=== PATIENT | male | born 1975 | race Caucasian/White ===

== ENCOUNTER 2017-02-21 18:26 | Emergency (ER) | payer OTHER, BC ==
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
[2017-02-21] MEDS ORDERED: Ketorolac 60 MG/2 ML SDV IM ONE (19:47)
[2017-02-21 20:21] VITALS: BP 131/81
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
== END 2017-02-21 20:11 | disposition home or self-care (01) ==
LOC: MW.ED 18:26
DX: S50.01XA Contusion of right elbow, initial encounter (principal); E66.9 Obesity, unspecified; Z98.890 Other specified postprocedural states; Z68.42 Body mass index [BMI] 45.0-49.9, adult; V89.2XXA Person injured in unspecified motor-vehicle accident, traffic, initial encounter
CPT/HCPCS: 73080; 96372; 99283; J1885; J2360

== ENCOUNTER 2019-02-11 09:13 | Emergency (ER) | payer BC ==
[2019-02-11 10:18] LABS: CHLORIDE,CL 108 mmol/L (98-107); SODIUM,NA 142 mmol/L (136-148)
[2019-02-11 10:30] VITALS: BP 144/86
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
--- NOTE | 2019-02-11 10:51 | CT ---
EXAMINATION: Non contrast CT head. Coronal and sagittal reformats. HISTORY: Pain FINDINGS: No evidence of intra or extra axial hemorrhage, mass, midline shift, hydrocephalus or edema. No hypoattenuation changes in the major vascular territories to suggest acute infarct. No abnormal intracranial calcifications are detected. No evidence of substantial vascular calcifications. Paranasal sinuses and mastoid air cells are well aerated without substantial findings. Pituitary fossa appears unremarkable. Orbits and globes are symmetric. Calvarium is intact. No evidence of skull fracture. IMPRESSION: No acute intracranial findings.
== END 2019-02-11 11:19 | disposition home or self-care (01) ==
LOC: MW.ED 09:13
DX: Z13.9 Encounter for screening, unspecified (principal); E78.00 Pure hypercholesterolemia, unspecified; Z79.899 Other long term (current) drug therapy
CPT/HCPCS: 36415; 70450; 70450-26; 80053; 81003; 82962; 84484; 85025; 85610; 99283; 99284-25

== ENCOUNTER 2019-11-15 13:01 | Observation (INO) | payer BC ==
--- NOTE | 2019-11-15 13:17 | EDM.PDOC ---
ED HPI GENERAL MEDICAL PROBLEM - General Chief Complaint: Chest Pain Stated Complaint: CHEST PAIN Time Seen by Provider: 11/15/19 13:13 Source of Information: Reports: Patient History Limitations: Reports: No Limitations - History of Present Illness INITIAL COMMENTS - FREE TEXT/NARRATIVE: This 44-year-old gentleman presents to the emergency room with a chief complaint of chest pain radiating down his arms for 5 to 10 minutes. Patient states the pain was 5 out of 10 and he was sweating. Since then subsided down to 0. Patient is here in the emergency room without any active chest pain. Onset: Today Duration: Minutes:, Resolved Prior to Arrival Location: Reports: Chest Quality: Reports: Dull Severity: Moderate Improves with: Reports: Rest Associated Symptoms: Reports: Chest Pain, Diaphoresis, Shortness of Breath chest Pain Score (Numeric/FACES): 5 - Related Data Allergies Allergy/AdvReac Type Severity Reaction Status Date / Time No Known Allergies Allergy Verified 11/15/19 13:08 Home Meds: Home Meds . [No Known Home Meds] 11/15/19 [History] Past Medical History - Past Health History Medical/Surgical History: Denies Medical/Surgical History HEENT History: Reports: None Cardiovascular History: Reports: None, High Cholesterol Respiratory History: Reports: Sleep Apnea Gastrointestinal History: Reports: None Genitourinary History: Reports: None Musculoskeletal History: Reports: None Neurological History: Reports: None Psychiatric History: Reports: None Endocrine/Metabolic History: Reports: Obesity/BMI 30+ Hematologic History: Reports: None Immunologic History: Reports: None Oncologic (Cancer) History: Reports: None Dermatologic History: Reports: Psoriasis - Infectious Disease History Infectious Disease History: Reports: None - Past Surgical History Head Surgeries/Procedures: Reports: None HEENT Surgical History: Reports: Adenoidectomy, Tonsillectomy Other HEENT Surgeries/Procedures: T&A and uvulectomy Social & Family History - Family History Family Medical History: Noncontributory - Caffeine Use Caffeine Use: Reports: Coffee ED ROS GENERAL - Review of Systems Review Of Systems: See Below Constitutional: Reports: No Symptoms HEENT: Reports: No Symptoms Respiratory: Reports: Shortness of Breath Cardiovascular: Reports: Chest Pain Endocrine: Reports: No Symptoms GI/Abdominal: Reports: No Symptoms : Reports: No Symptoms Musculoskeletal: Reports: No Symptoms Skin: Reports: No Symptoms, Diaphoresis Neurological: Reports: No Symptoms Psychiatric: Reports: No Symptoms, Anxiety Hematologic/Lymphatic: Reports: No Symptoms Immunologic: Reports: No Symptoms ED EXAM, GENERAL - Physical Exam Exam: See Below Exam Limited By: No Limitations General Appearance: Alert, WD/WN, No Apparent Distress Eye Exam: Bilateral Eye: Normal Fundi, Normal Inspection Ears: Normal External Exam, Normal Canal, Normal TMs Ear Exam: Bilateral Ear: Auricle Normal, Canal Normal Nose: Normal Inspection, Normal Mucosa, No Blood Throat/Mouth: Normal Inspection, Normal Lips, Normal Teeth, Normal Oropharynx Head: Atraumatic, Normocephalic Neck: Normal Inspection Respiratory/Chest: No Respiratory Distress, Lungs Clear, No Accessory Muscle Use Cardiovascular: Normal Peripheral Pulses, Regular Rate, Rhythm, No JVD, No Murmur GI/Abdominal: Normal Bowel Sounds, Soft, Non-Tender (Male) Exam: Deferred Back Exam: Normal Inspection, Full Range of Motion Extremities: Normal Inspection, Normal Range of Motion, No Pedal Edema, Normal Capillary Refill Neurological: Alert, Oriented, CN II-XII Intact, Normal Cognition Psychiatric: Normal Affect, Normal Mood Skin Exam: Warm, Dry, Intact, Normal Color Course - Vital Signs Text/Narrative:: 44-year-old gentleman presents with chest pain which resolved prior to presenting to the emergency room. Patient has multiple risk factors high blood pressure, is a smoker and heart disease in his family. States he became diaphoretic with the chest pain initially 5/10 and subsided on its own. Patient is around 3/10 now in the ER with some tightness. Patient's EKG was normal patient's cardiac enzymes were negat patient's blood pressure was slightly elevated 159/96. Patient was given aspirin and 325 mg also given nitro on his chest wall. This was discussed with the hospitalist Dr. Macedo who is agreed to admit the patient for observation/telemetry Last Recorded V/S: Last Vital Signs Temp 97.6 F 11/15/19 13:09 Pulse 101 H 11/15/19 13:09 Resp 18 11/15/19 13:09 BP 159/96 H 11/15/19 13:09 Pulse Ox 96 11/15/19 13:09 - Orders/Labs/Meds Orders: Active Orders 24 hr Category Date Time Status EKG 12 Lead [EKG Documentation Completion] [RC] STAT Care 11/15/19 13:06 Active Labs: Laboratory Tests 11/15/19 11/15/19 Range/Units 13:10 13:10 WBC 6.11 (4.0-11.0) K/uL RBC 5.58 (4.50-5.90) M/uL Hgb 16.1 (13.0-17.0) g/dL Hct 48.2 (38.0-50.0) % MCV 86.4 (80.0-98.0) fL MCH 28.9 (27.0-32.0) pg MCHC 33.4 (31.0-37.0) g/dL RDW Std Deviation 42.6 (28.0-62.0) fl RDW Coeff of Ann 14 (11.0-15.0) % Plt Count 220 (150-400) K/uL MPV 10.20 (7.40-12.00) fL Neut % (Auto) 54.8 (48.0-80.0) % Lymph % (Auto) 34.2 (16.0-40.0) % [place] % (Auto) 7.4 (0.0-15.0) % Eos % (Auto) 2.8 (0.0-7.0) % Baso % (Auto) 0.8 (0.0-1.5) % Neut # (Auto) 3.4 (1.4-5.7) K/uL Lymph # (Auto) 2.1 (0.6-2.4) K/uL [place] # (Auto) 0.5 (0.0-0.8) K/uL Eos # (Auto) 0.2 (0.0-0.7) K/uL Baso # (Auto) 0.1 (0.0-0.1) K/uL Nucleated RBC % 0.0 /100WBC Nucleated RBCs # 0 K/uL Sodium 141 (136-148) mmol/L Potassium 4.0 (3.5-5.1) mmol/L Chloride 105 (98-107) mmol/L Carbon Dioxide 26.7 (21.0-32.0) mmol/L BUN 12 (7.0-18.0) mg/dL Creatinine 0.9 (0.8-1.3) mg/dL Est Cr Clr Drug Dosing TNP Estimated GFR (MDRD) > 60.0 ml/min Glucose 105 (74-106) mg/dL Calcium 9.2 (8.5-10.1) mg/dL Total Bilirubin 0.4 (0.2-1.0) mg/dL AST 25 (15-37) IU/L ALT 40 (14-63) IU/L Alkaline Phosphatase 78 (46-116) U/L Troponin I < 0.050 (0.000-0.056) ng/mL Total Protein 7.6 (6.4-8.2) g/dL Albumin 4.3 (3.4-5.0) g/dL Globulin 3.3 (2.6-4.0) g/dL Albumin/Globulin Ratio 1.3 (0.9-1.6) Meds: Medications Discontinued Medications Generic Name Dose Route Start Last Admin Trade Name Freq PRN Reason Stop Dose Admin Aspirin 325 mg 11/15/19 13:18 11/15/19 13:27 Aspirin PO 11/15/19 13:19 325 mg ONETIME ONE Administration Nitroglycerin 1 gm 11/15/19 13:18 11/15/19 13:27 Nitro-Bid 2% TOP 11/15/19 13:19 1 gm ONETIME ONE Administration Departure - Departure Time of Disposition: 13:50 Disposition: Refer to Observation Condition: Good Clinical Impression: Atypical chest pain Referrals: PCP,None [Primary Care Provider] - Forms: ED Department Discharge Sepsis Event Note - Evaluation Sepsis Screening Result: No Definite Risk - Focused Exam Vital Signs: Vital Signs Temp Pulse Resp BP Pulse Ox 11/15/19 13:09 97.6 F 101 H 18 159/96 H 96 Date Exam was Performed: 11/15/19 Time Exam was Performed: 13:48 - My Orders Last 24 Hours: My Active Orders 11/15/19 13:06 EKG 12 Lead [EKG Documentation Completion] [RC] STAT - Assessment/Plan Last 24 Hours: My Active Orders 11/15/19 13:06 EKG 12 Lead [EKG Documentation Completion] [RC] STAT
[2019-11-15] MEDS ORDERED: Nitroglycerin 2% Oint 1 GM UD Packet TOP ONE (13:18)
[2019-11-15] MEDS ORDERED: Aspirin 325 MG Tab PO ONE (13:18)
--- NOTE | 2019-11-15 13:37 | CR ---
Chest: Portable view of the chest was obtained. Comparison: Prior chest x-ray of 10/20/18. Heart size and mediastinum are normal. Lungs are clear with no acute parenchymal change. Bony structures are unremarkable. Impression: 1. Nothing acute is seen on portable chest x-ray. Diagnostic code #1 This report was dictated in MDT
[2019-11-15 13:38] LABS: BLOOD UREA NITROGEN,BUN 12 mg/dL (7.0-18.0); CARBON DIOXIDE,CO2 26.7 mmol/L (21.0-32.0); CHLORIDE,CL 105 mmol/L (98-107); GLUCOSE RANDOM 105 mg/dL (74-106); SODIUM,NA 141 mmol/L (136-148)
--- NOTE | 2019-11-15 15:00 | PCM.HP.2 ---
H&P History of Present Illness - General Date of Service: 11/15/19 Admit Problem/Dx: Admission Diagnosis/Problem Admission Diagnosis/Problem Chest pain Source of Information: Patient History Limitations: Reports: No Limitations - History of Present Illness Initial Comments - Free Text/Narative: This 44 year old male with pmh of obesity, EMELY with CPAP, depression and anxiety presented to the ED with complaints of chest pain that last for approximately 10 minutes. It was heaviness, that then spread to bilateral arms with some diaphoresis. He reports by the time he presented to the ED the pain was nearly gone. He reports this feels like anxiety he has had in the past. he used to take Alprazolam, but has not followed up with PCP for refills. He denies palpitations, he was just sitting at his desk when the pain occurred. he denies fevers, chills or headache. No dyspnea or abdominal pain. No diarrhea or constipation and no neurological complaints. He reports increase in weight over the last year, with change of a new job. He reports trying to start working out again and eating better. He reports family history of CAD with his mother (CAD and CVA) and brother who a couple years ago due to CAD. He reports social tobacco use, maybe 1/2 pack over a weeks time. Drinks alcohol rarely and no recreational drug use or vaping. In the ED labwork WNL, troponin negative. EKG SR with no ST elevation. CXR negative. He was given ASA and nitro paste in the ED. No pain in ED. BP initially elevated, 150/90s. He will be admitted for chest pain rule out ACS. PCP, Radha Baron chest Pain Score (Numeric/FACES): 5 - Related Data Allergies/Adverse Reactions: Allergies Allergy/AdvReac Type Severity Reaction Status Date / Time No Known Allergies Allergy Verified 11/15/19 13:08 Home Medications: Home Meds . [No Known Home Meds] 11/15/19 [History] Past Medical History - Past Health History Medical/Surgical History: Denies Medical/Surgical History HEENT History: Reports: None Cardiovascular History: Reports: High Cholesterol. Denies: Afib, Blood Clots/ VTE/DVT, CAD, NC, Stents Respiratory History: Reports: Sleep Apnea (uses CPAP) Gastrointestinal History: Reports: None Genitourinary History: Reports: None. Denies: Acute Renal Failure Musculoskeletal History: Reports: None Neurological History: Reports: None. Denies: CVA, TIA Psychiatric History: Reports: Anxiety, Depression Endocrine/Metabolic History: Reports: Obesity/BMI 30+. Denies: Diabetes, Type II Hematologic History: Reports: None Immunologic History: Reports: None Oncologic (Cancer) History: Reports: None Dermatologic History: Reports: Psoriasis - Infectious Disease History Infectious Disease History: Reports: None - Past Surgical History Head Surgeries/Procedures: Reports: None HEENT Surgical History: Reports: Adenoidectomy, Tonsillectomy Other HEENT Surgeries/Procedures: T&A and uvulectomy Social & Family History - Family History Family Medical History: Noncontributory - Tobacco Use Smoking Status *Q: Current Some Day Smoker Tobacco Use Within Last Twelve Months: Cigarettes Packs/Tins Daily: 0.1 - Caffeine Use Caffeine Use: Reports: Coffee - Alcohol Use Alcohol Use Frequency: Rarely, Socially - Recreational Drug Use Recreational Drug Use: No - Living Situation & Occupation Living situation: Reports: with Family Occupation: Employed H&P Review of Systems - Review of Systems: Review Of Systems: See Below General: Reports: No Symptoms. Denies: Fever, Chills, Malaise, Weakness HEENT: Reports: No Symptoms. Denies: Headaches, Sinus Congestion, Vertigo Pulmonary: Reports: No Symptoms. Denies: Shortness of Breath Cardiovascular: Reports: Chest Pain. Denies: Dyspnea on Exertion, Orthopnea, Edema, Syncope Gastrointestinal: Reports: No Symptoms. Denies: Abdominal Pain, Black Stool, Bloody Stool, Nausea, Vomiting Genitourinary: Reports: No Symptoms. Denies: Dysuria, Frequency, Burning Skin: Reports: No Symptoms Psychiatric: Reports: Anxiety Neurological: Reports: No Symptoms Hematologic/Lymphatic: Reports: No Symptoms Immunologic: Reports: No Symptoms Exam - Exam Exam: See Below - Vital Signs Vital Signs: Last Vital Signs Temp 97.6 F 11/15/19 13:09 Pulse 96 11/15/19 13:32 Resp 19 11/15/19 13:32 BP 131/65 11/15/19 13:32 Pulse Ox 95 11/15/19 13:32 Weight: 122.47 kg - Exam Quality Assessment: DVT Prophylaxis. No: Supplemental Oxygen General: Alert, Oriented, Cooperative HEENT: Conjunctiva Clear, Posterior Pharynx Clear Neck: Supple, Trachea Midline Lungs: Clear to Auscultation, Normal Respiratory Effort, Other (laying flat and talking, no difficulties breathing) Cardiovascular: Regular Rate, Regular Rhythm, Normal S1, Normal S2 GI/Abdominal Exam: Normal Bowel Sounds, Soft, Non-Tender, Other (central obesity ) Back Exam: Normal Inspection, Full Range of Motion Extremities: Normal Inspection, Normal Range of Motion, Non-Tender, No Pedal Edema Skin: Warm, Dry Neuro Extensive - Mental Status: Alert, Oriented x3 Neuro Extensive - Motor, Sensory, Reflexes: CN II-XII Intact Psychiatric: Alert, Normal Affect, Normal Mood - Patient Data Lab Results Last 24 hrs: Laboratory Results - last 24 hr 11/15/19 11/15/19 Range/Units 13:10 13:10 WBC 6.11 (4.0-11.0) K/uL RBC 5.58 (4.50-5.90) M/uL Hgb 16.1 (13.0-17.0) g/dL Hct 48.2 (38.0-50.0) % MCV 86.4 (80.0-98.0) fL MCH 28.9 (27.0-32.0) pg MCHC 33.4 (31.0-37.0) g/dL RDW Std Deviation 42.6 (28.0-62.0) fl RDW Coeff of Ann 14 (11.0-15.0) % Plt Count 220 (150-400) K/uL MPV 10.20 (7.40-12.00) fL Neut % (Auto) 54.8 (48.0-80.0) % Lymph % (Auto) 34.2 (16.0-40.0) % [place] % (Auto) 7.4 (0.0-15.0) % Eos % (Auto) 2.8 (0.0-7.0) % Baso % (Auto) 0.8 (0.0-1.5) % Neut # (Auto) 3.4 (1.4-5.7) K/uL Lymph # (Auto) 2.1 (0.6-2.4) K/uL [place] # (Auto) 0.5 (0.0-0.8) K/uL Eos # (Auto) 0.2 (0.0-0.7) K/uL Baso # (Auto) 0.1 (0.0-0.1) K/uL Nucleated RBC % 0.0 /100WBC Nucleated RBCs # 0 K/uL Sodium 141 (136-148) mmol/L Potassium 4.0 (3.5-5.1) mmol/L Chloride 105 (98-107) mmol/L Carbon Dioxide 26.7 (21.0-32.0) mmol/L BUN 12 (7.0-18.0) mg/dL Creatinine 0.9 (0.8-1.3) mg/dL Est Cr Clr Drug Dosing TNP Estimated GFR (MDRD) > 60.0 ml/min Glucose 105 (74-106) mg/dL Calcium 9.2 (8.5-10.1) mg/dL Total Bilirubin 0.4 (0.2-1.0) mg/dL AST 25 (15-37) IU/L ALT 40 (14-63) IU/L Alkaline Phosphatase 78 (46-116) U/L Troponin I < 0.050 (0.000-0.056) ng/mL Total Protein 7.6 (6.4-8.2) g/dL Albumin 4.3 (3.4-5.0) g/dL Globulin 3.3 (2.6-4.0) g/dL Albumin/Globulin Ratio 1.3 (0.9-1.6) Result Diagrams: 11/15/19 13:10 11/15/19 13:10 Sepsis Event Note - Evaluation Sepsis Screening Result: No Definite Risk - Focused Exam Vital Signs: Vital Signs Temp Pulse Resp BP Pulse Ox 11/15/19 13:32 96 19 131/65 95 11/15/19 13:09 97.6 F 101 H 18 159/96 H 96 Date Exam was Performed: 11/15/19 Time Exam was Performed: 15:12 - Problem List (1) Atypical chest pain SNOMED Code(s): 591529253 ICD Code: R07.89 - OTHER CHEST PAIN Status: Acute Current Visit: Yes (2) EMELY on CPAP SNOMED Code(s): 13774345 ICD Code: G47.33 - OBSTRUCTIVE SLEEP APNEA (ADULT) (PEDIATRIC); Z99.89 - DEPENDENCE ON OTHER ENABLING MACHINES AND DEVICES Status: Chronic Current Visit: Yes (3) HLD (hyperlipidemia) SNOMED Code(s): 43003129 ICD Code: E78.5 - HYPERLIPIDEMIA, UNSPECIFIED Status: Chronic Current Visit: Yes (4) Obesity SNOMED Code(s): 172831967, 527467983 ICD Code: E66.9 - OBESITY, UNSPECIFIED Status: Chronic Current Visit: Yes (5) Anxiety and depression SNOMED Code(s): 217769702 ICD Code: F41.9 - ANXIETY DISORDER, UNSPECIFIED; F32.9 - MAJOR DEPRESSIVE DISORDER, SINGLE EPISODE, UNSPECIFIED Status: Chronic Current Visit: Yes Problem List Initiated/Reviewed/Updated: Yes Orders Last 24hrs: Active Orders 24 hr Category Date Time Status Admission Status [Patient Status] [ADT] Stat ADT 11/15/19 13:53 Active EKG 12 Lead [EKG Documentation Completion] [RC] STAT Care 11/15/19 13:06 Active Assessment/Plan Comment:: This 44 year old male admitted with atypical chest pain rule out ACS 1. Atypical chest pain: - Trend troponins - Monitor on telemetry - Obtain A1c and lipid panel - Will need outpatient stress test - Monitor BP, may need to start antihypertensive. 2. Anxiety - Could be cause of chest pain as well, needs to follow with PCP for refills on benzodiazepines. - last follow up with PCP was almost 1 year ago. Where they had discussion of benzodiazepines vs SSRI and was started on Lexapro. Diet: heart healthy Code Status: Full VTE prophylaxis: SCDs and ambulation Dispo: 1 day - Mortality Measure Prognosis:: Good
[2019-11-15] MEDS ORDERED: Ondansetron 4 MG/2 ML SDV IVPUSH PRN (15:01)
[2019-11-15] MEDS ORDERED: Sodium Chloride 0.9% 2.5 ML Syringe FLUSH PRN (15:01)
[2019-11-15] MEDS ORDERED: Docusate Sodium 100 MG Cap PO PRN (15:01)
[2019-11-15 15:42] LABS: HEMOGLOBIN A1C 5.7 % (4.5-6.2)
[2019-11-16] MEDS: Acetaminophen 325 MG Tab PO PRN ×2 (00:25→07:56)
[2019-11-16] MEDS: Sodium Chloride 0.65% Nasal Spray 45 ML Bottle NAS SCH ×2 (01:08→08:00)
[2019-11-16] MEDS: Morphine 2 MG/ML Syringe IVPUSH PRN ×2 (01:09→05:12)
[2019-11-16 07:43] VITALS: BP 112/73; PULSE 84
[2019-11-16] MEDS ORDERED: Aspirin 81 MG Tab.Chew PO SCH (09:00)
--- NOTE | 2019-11-16 09:07 | PCM.DCSUM1 ---
Discharge Summary - Hospital Course Brief History: This 44 year old male with pmh of obesity, EMELY with CPAP, depression and anxiety presented to the ED with complaints of chest pain that last for approximately 10 minutes. It was heaviness, that then spread to bilateral arms with some diaphoresis. He reports by the time he presented to the ED the pain was nearly gone. He reports this feels like anxiety he has had in the past. he used to take Alprazolam, but has not followed up with PCP for refills. He denies palpitations, he was just sitting at his desk when the pain occurred. he denies fevers, chills or headache. No dyspnea or abdominal pain. No diarrhea or constipation and no neurological complaints. He reports increase in weight over the last year, with change of a new job. He reports trying to start working out again and eating better. He reports family history of CAD with his mother (CAD and CVA) and brother who a couple years ago due to CAD. He reports social tobacco use, maybe 1/2 pack over a weeks time. Drinks alcohol rarely and no recreational drug use or vaping. In the ED labwork WNL, troponin negative. EKG SR with no ST elevation. CXR negative. He was given ASA and nitro paste in the ED. No pain in ED. BP initially elevated, 150/90s. He will be admitted for chest pain rule out ACS. PCPRadha Diagnosis: Stroke: No - Discharge Data Discharge Date: 11/16/19 Discharge Disposition: Home, Self-Care 01 Condition: Stable - Referral to Home Health Primary Care Physician: PCP None - Discharge Diagnosis/Problem(s) (1) Atypical chest pain SNOMED Code(s): 853175414 ICD Code: R07.89 - OTHER CHEST PAIN Status: Acute Current Visit: Yes (2) EMELY on CPAP SNOMED Code(s): 49279452 ICD Code: G47.33 - OBSTRUCTIVE SLEEP APNEA (ADULT) (PEDIATRIC); Z99.89 - DEPENDENCE ON OTHER ENABLING MACHINES AND DEVICES Status: Chronic Current Visit: Yes (3) HLD (hyperlipidemia) SNOMED Code(s): 61466885 ICD Code: E78.5 - HYPERLIPIDEMIA, UNSPECIFIED Status: Chronic Current Visit: Yes (4) Obesity SNOMED Code(s): 971836302, 256394556 ICD Code: E66.9 - OBESITY, UNSPECIFIED Status: Chronic Current Visit: Yes (5) Anxiety and depression SNOMED Code(s): 399441749 ICD Code: F41.9 - ANXIETY DISORDER, UNSPECIFIED; F32.9 - MAJOR DEPRESSIVE DISORDER, SINGLE EPISODE, UNSPECIFIED Status: Chronic Current Visit: Yes - Patient Instructions Diet: Heart Healthy Diet Activity: No Strenuous Activities Driving: Do Not Drive Showering/Bathing: May Shower Notify Provider of: Fever, Increased Pain, Swelling and Redness, Drainage, Nausea and/or Vomiting - Discharge Plan *PRESCRIPTION DRUG MONITORING PROGRAM REVIEWED*: Not Applicable *COPY OF PRESCRIPTION DRUG MONITORING REPORT IN PATIENT TRUE: Not Applicable Prescriptions/Med Rec: atorvaSTATin [Lipitor] 20 mg PO BEDTIME #30 tab Home Medications: Home Meds Aspirin 81 mg PO DAILY tab.chew 11/16/19 [Rx] atorvaSTATin [Lipitor] 20 mg PO BEDTIME #30 tab 11/16/19 [Rx] Oxygen Therapy Mode: Room Air Patient Handouts: Exercise Stress Echocardiogram, [id number], Atorvastatin tablets Referrals: PCP,None [Primary Care Provider] - (Stress test nurse will call you to make an appoinment for a cardiac stress test. ) Radha Argueta NP [Nurse Practitioner] - 11/24/19 1:30 pm - Discharge Summary/Plan Comment DC Time >30 min.: No Discharge Summary/Plan Comment: Admitting Diagnoses: Atypical chest pain Discharge Diagnoses: Atypical chest pain Hyperlipidemia Other PMH Depression Anxiety Sherif was admitted secondary to atypical chest pain, likely related to anxiety. Troponins were trended, and negative. No further chest pain. He was evaluated for DM, which A1c WNL. cholesterol significantly elevated, will start on statin and counseled on smarter food choices, including DASH diet. He was encouraged to take ASA 81 mg daily. Return to clinic or ED if concerns should arise. He is to follow up with PCP in the next week and arranged for outpatient stress test. - Patient Data Vitals - Most Recent: Last Vital Signs Temp 96.9 F 11/16/19 07:42 Pulse 84 11/16/19 07:42 Resp 16 11/16/19 07:42 BP 112/73 11/16/19 07:42 Pulse Ox 96 11/16/19 07:42 Weight - Most Recent: 122.47 kg I&O - Last 24 hours: Intake & Output 11/15/19 11/16/19 11/16/19 22:59 06:59 14:59 Intake Total 1100 Balance 1100 Lab Results - Last 24 hrs: Laboratory Results - last 24 hr 11/15/19 11/15/19 11/15/19 Range/Units 13:10 13:10 13:10 WBC 6.11 (4.0-11.0) K/uL RBC 5.58 (4.50-5.90) M/uL Hgb 16.1 (13.0-17.0) g/dL Hct 48.2 (38.0-50.0) % MCV 86.4 (80.0-98.0) fL MCH 28.9 (27.0-32.0) pg MCHC 33.4 (31.0-37.0) g/dL RDW Std Deviation 42.6 (28.0-62.0) fl RDW Coeff of Ann 14 (11.0-15.0) % Plt Count 220 (150-400) K/uL MPV 10.20 (7.40-12.00) fL Neut % (Auto) 54.8 (48.0-80.0) % Lymph % (Auto) 34.2 (16.0-40.0) % [place] % (Auto) 7.4 (0.0-15.0) % Eos % (Auto) 2.8 (0.0-7.0) % Baso % (Auto) 0.8 (0.0-1.5) % Neut # (Auto) 3.4 (1.4-5.7) K/uL Lymph # (Auto) 2.1 (0.6-2.4) K/uL [place] # (Auto) 0.5 (0.0-0.8) K/uL Eos # (Auto) 0.2 (0.0-0.7) K/uL Baso # (Auto) 0.1 (0.0-0.1) K/uL Nucleated RBC % 0.0 /100WBC Nucleated RBCs # 0 K/uL Sodium 141 (136-148) mmol/L Potassium 4.0 (3.5-5.1) mmol/L Chloride 105 (98-107) mmol/L Carbon Dioxide 26.7 (21.0-32.0) mmol/L BUN 12 (7.0-18.0) mg/dL Creatinine 0.9 (0.8-1.3) mg/dL Est Cr Clr Drug Dosing TNP Estimated GFR (MDRD) > 60.0 ml/min Glucose 105 (74-106) mg/dL Hemoglobin A1c 5.7 (4.5-6.2) % Calcium 9.2 (8.5-10.1) mg/dL Total Bilirubin 0.4 (0.2-1.0) mg/dL AST 25 (15-37) IU/L ALT 40 (14-63) IU/L Alkaline Phosphatase 78 (46-116) U/L Troponin I < 0.050 (0.000-0.056) ng/mL Total Protein 7.6 (6.4-8.2) g/dL Albumin 4.3 (3.4-5.0) g/dL Globulin 3.3 (2.6-4.0) g/dL Albumin/Globulin Ratio 1.3 (0.9-1.6) Triglycerides (0-200) mg/dL Cholesterol (50-200) mg/dL LDL Cholesterol, Calc (60-180) mg/dL VLDL Cholesterol (5-55) mg/dL HDL Cholesterol (40-60) mg/dL Cholesterol/HDL Ratio (3.3-6.0) 11/15/19 11/16/19 11/16/19 Range/Units 19:07 00:57 06:01 WBC (4.0-11.0) K/uL RBC (4.50-5.90) M/uL Hgb (13.0-17.0) g/dL Hct (38.0-50.0) % MCV (80.0-98.0) fL MCH (27.0-32.0) pg MCHC (31.0-37.0) g/dL RDW Std Deviation (28.0-62.0) fl RDW Coeff of Ann (11.0-15.0) % Plt Count (150-400) K/uL MPV (7.40-12.00) fL Neut % (Auto) (48.0-80.0) % Lymph % (Auto) (16.0-40.0) % [place] % (Auto) (0.0-15.0) % Eos % (Auto) (0.0-7.0) % Baso % (Auto) (0.0-1.5) % Neut # (Auto) (1.4-5.7) K/uL Lymph # (Auto) (0.6-2.4) K/uL [place] # (Auto) (0.0-0.8) K/uL Eos # (Auto) (0.0-0.7) K/uL Baso # (Auto) (0.0-0.1) K/uL Nucleated RBC % /100WBC Nucleated RBCs # K/uL Sodium (136-148) mmol/L Potassium (3.5-5.1) mmol/L Chloride (98-107) mmol/L Carbon Dioxide (21.0-32.0) mmol/L BUN (7.0-18.0) mg/dL Creatinine (0.8-1.3) mg/dL Est Cr Clr Drug Dosing Estimated GFR (MDRD) ml/min Glucose (74-106) mg/dL Hemoglobin A1c (4.5-6.2) % Calcium (8.5-10.1) mg/dL Total Bilirubin (0.2-1.0) mg/dL AST (15-37) IU/L ALT (14-63) IU/L Alkaline Phosphatase (46-116) U/L Troponin I < 0.050 < 0.050 (0.000-0.056) ng/mL Total Protein (6.4-8.2) g/dL Albumin (3.4-5.0) g/dL Globulin (2.6-4.0) g/dL Albumin/Globulin Ratio (0.9-1.6) Triglycerides 268 H (0-200) mg/dL Cholesterol 326 H (50-200) mg/dL LDL Cholesterol, Calc 209 H (60-180) mg/dL VLDL Cholesterol 53 (5-55) mg/dL HDL Cholesterol 63 H (40-60) mg/dL Cholesterol/HDL Ratio 5.2 (3.3-6.0) Med Orders - Current: Current Medications Acetaminophen (Tylenol) 650 mg PO Q4H PRN PRN Reason: Pain (Mild 1-3)/fever Last Admin: 11/16/19 07:56 Dose: 650 mg Aspirin (Aspirin) 81 mg PO DAILY [facility] Last Admin: 11/16/19 08:00 Dose: 81 mg Docusate Sodium (Colace) 100 mg PO BID PRN PRN Reason: Constipation Ondansetron HCl (Zofran) 4 mg IVPUSH Q4H PRN PRN Reason: Nausea Sodium Chloride (Saline Flush) 2.5 ml FLUSH ASDIRECTED PRN PRN Reason: Keep Vein Open Sodium Chloride ([place] Nasal [place]) 5 ml PRASHANTH BID [facility] Last Admin: 11/16/19 08:00 Dose: 5 ml Discontinued Medications Aspirin (Aspirin) 325 mg PO ONETIME ONE Stop: 11/15/19 13:19 Last Admin: 11/15/19 13:27 Dose: 325 mg Morphine Sulfate (Morphine) 2 mg IVPUSH Q4H PRN PRN Reason: Chest Pain Last Admin: 11/16/19 05:12 Dose: 2 mg Nitroglycerin (Nitro-Bid 2%) 1 gm TOP ONETIME ONE Stop: 11/15/19 13:19 Last Admin: 11/15/19 13:27 Dose: 1 gm
== END 2019-11-16 12:05 | disposition home or self-care (01) ==
LOC: MW.ED 13:01 → MW.MS 13:53
PROVIDERS: ADMIT Internal Medicine; ATTEND Internal Medicine
DX: R07.89 Other chest pain (principal); E78.5 Hyperlipidemia, unspecified; E78.00 Pure hypercholesterolemia, unspecified; E66.9 Obesity, unspecified; F41.9 Anxiety disorder, unspecified; G47.33 Obstructive sleep apnea (adult) (pediatric); F32.9 Major depressive disorder, single episode, unspecified; F17.210 Nicotine dependence, cigarettes, uncomplicated; Z99.89 Dependence on other enabling machines and devices; Z79.82 Long term (current) use of aspirin; Z79.899 Other long term (current) drug therapy; Z68.43 Body mass index [BMI] 50.0-59.9, adult
CPT/HCPCS: 36415; 71045; 71045-26; 80053; 80061; 83036; 84484; 85025; 93005; 96374; 96376; 99284; 99285-25; A9270-GY; G0378; J2270

== ENCOUNTER 2019-12-13 17:28 | Emergency (ER) | payer BC ==
--- NOTE | 2019-12-13 17:50 | EDM.PDOC ---
ED HPI GENERAL MEDICAL PROBLEM - General Chief Complaint: Upper Extremity Injury/Pain Stated Complaint: TORN MUSCLE IN LEFT BICEP Time Seen by Provider: 12/13/19 17:37 Source of Information: Reports: Patient History Limitations: Reports: No Limitations - History of Present Illness INITIAL COMMENTS - FREE TEXT/NARRATIVE: HISTORY AND PHYSICAL: History of present illness: Patient is a 44-year-old male presents to the emergency room with complaints of left bicep pain. He states he was lifting up the corner of a bed with both hands when he felt a sharp pain in his left distal bicep. He is concerned he may have torn his biceps as it is now painful when he engages the muscle. He denies any numbness, tingling, weakness of the arm. Offers no systemic complaints Review of systems: As per history of present illness and below otherwise all systems reviewed and negative. Past medical history: As per history of present illness and as reviewed below otherwise noncontributory. Surgical history: As per history of present illness and as reviewed below otherwise noncontributory. Social history: See social history for further information Family history: As per history of present illness and as reviewed below otherwise noncontributory. Physical exam: General: Well-developed and well-nourished 44-year-old male. Alert and oriented. Nontoxic-appearing and in no acute distress. HEENT: Atraumatic, normocephalic, pupils equal and reactive bilaterally, negative for conjunctival pallor or scleral icterus, mucous membranes moist, TMs normal bilaterally, throat clear, neck supple, nontender, trachea midline. No drooling or trismus noted. No meningeal signs. No hot potato voice noted. Lungs: Clear to auscultation, breath sounds equal bilaterally, chest nontender. Heart: S1S2, regular rate and rhythm without overt murmur Abdomen: Soft, obese nontender. Skin: Intact, warm, dry. No lesions or rashes noted. Extremities: No obvious deformity of the muscle belly of the bicep. He moves all extremities per self without difficulty or deficits, good flexion and extention of shoulder, elbow, wrist. Good strength/resistance involving the bicep. Neurovascular unremarkable. Neuro: Awake, alert, oriented. Cranial nerves II through XII unremarkable. Cerebellum unremarkable. Motor and sensory unremarkable throughout. Exam nonfocal. Notes: Discussed with patient the need to follow-up with an orthopedic provider. He does not have a complete tear but he may have some microtears which are causing his pain. He is obese, so it is difficult to fully see the bicep muscle in the extremity. Will place in a sling. Medication and supportive care measures were reviewed and discussed. Voices understanding and is agreeable to plan of care. Denies any further questions or concerns at this time. Diagnostics: None Therapeutics: Sling Prescription: Kiko Impression: Bicep strain r/o tear Plan: 1. Rest, ice, elevate the affected extremity. Please wear the sling as directed. 2. Tylenol and/or Ibuprofen as needed for pain management. 3. Follow up with the Orthopedic provider as we discussed. Return to the ED as needed and as discussed. Definitive disposition and diagnosis as appropriate pending reevaluation and review of above. L upper arm Pain Score (Numeric/FACES): 7 - Related Data Allergies Allergy/AdvReac Type Severity Reaction Status Date / Time No Known Allergies Allergy Verified 12/13/19 17:59 Home Meds: Home Meds ALPRAZolam [Xanax XR] 0 mg PO DAILY 12/13/19 [History] atorvaSTATin [Lipitor] 0 mg PO BEDTIME 12/13/19 [History] Past Medical History - Past Health History Medical/Surgical History: Denies Medical/Surgical History HEENT History: Reports: None Cardiovascular History: Reports: High Cholesterol. Denies: Afib, Blood Clots/ VTE/DVT, CAD, [place], Stents Respiratory History: Reports: Sleep Apnea (uses CPAP) Gastrointestinal History: Reports: None Genitourinary History: Reports: None. Denies: Acute Renal Failure Musculoskeletal History: Reports: None Neurological History: Reports: None. Denies: CVA, TIA Other Neuro History: Headaches once a week Psychiatric History: Reports: Anxiety, Depression Endocrine/Metabolic History: Reports: Obesity/BMI 30+. Denies: Diabetes, Type II Hematologic History: Reports: None Immunologic History: Reports: None Oncologic (Cancer) History: Reports: None Dermatologic History: Reports: Psoriasis - Infectious Disease History Infectious Disease History: Reports: None - Past Surgical History Head Surgeries/Procedures: Reports: None HEENT Surgical History: Reports: Adenoidectomy, Tonsillectomy Other HEENT Surgeries/Procedures: T&A and uvulectomy Social & Family History - Family History Family Medical History: Noncontributory - Caffeine Use Caffeine Use: Reports: Coffee - Living Situation & Occupation Living situation: Reports: with Family Occupation: Employed Review of Systems - Review of Systems Review Of Systems: Comprehensive ROS is negative, except as noted in HPI. ED EXAM, GENERAL - Physical Exam Exam: See Below (See dictation) Course - Vital Signs Last Recorded V/S: Last Vital Signs Temp 96 F L 12/13/19 17:42 Pulse 98 12/13/19 17:42 Resp 18 12/13/19 17:42 BP 136/79 12/13/19 17:42 Pulse Ox 96 12/13/19 17:42 - Orders/Labs/Meds Orders: Active Orders 24 hr Category Date Time Status DME for Discharge [COMM] Stat Oth 12/13/19 17:51 Ordered Departure - Departure Time of Disposition: 17:48 Disposition: Home, Self-Care 01 Clinical Impression: Biceps strain Qualifiers: Encounter type: initial encounter Laterality: left Qualified Code(s): S46.212A - Strain of muscle, fascia and tendon of other parts of biceps, left arm, initial encounter - Discharge Information Instructions: Muscle Strain, [id number] Referrals: Radha Argueta SPECIAL TECHNICAL OPERATIONS OFFICER [Primary Care Provider] - Forms: ED Department Discharge Additional Instructions: The following information is given to patients seen in the emergency department who are being discharged to home. This information is to outline your options for follow-up care. We provide all patients seen in our emergency department with a follow-up referral. The need for follow-up, as well as the timing and circumstances, are variable depending upon the specifics of your emergency department visit. If you don't have a primary care physician on staff, we will provide you with a referral. We always advise you to contact your personal physician following an emergency department visit to inform them of the circumstance of the visit and for follow-up with them and/or the need for any referrals to a consulting specialist. The emergency department will also refer you to a specialist when appropriate. This referral assures that you have the opportunity for follow-up care with a specialist. All of these measure are taken in an effort to provide you with optimal care, which includes your follow-up. Under all circumstances we always encourage you to contact your private physician who remains a resource for coordinating your care. When calling for follow-up care, please make the office aware that this follow-up is from your recent emergency room visit. If for any reason you are refused follow-up, please contact the [facility] Department at and asked to speak to the emergency department charge nurse. [facility] [address], [place] [address] [facility] Professional Building [address] [place] [address], [address] [place] [address] 1. Rest, ice, elevate the affected extremity. Please wear the sling as directed. 2. Tylenol and/or Ibuprofen as needed for pain management. 3. Follow up with the Orthopedic provider as we discussed. Return to the ED as needed and as discussed. Sepsis Event Note - Focused Exam Vital Signs: Vital Signs Temp Pulse Resp BP Pulse Ox 12/13/19 17:42 96 F L 98 18 136/79 96 Date Exam was Performed: 12/13/19 Time Exam was Performed: 19:22 - My Orders Last 24 Hours: My Active Orders 12/13/19 17:51 DME for Discharge [COMM] Stat - Assessment/Plan Last 24 Hours: My Active Orders 12/13/19 17:51 DME for Discharge [COMM] Stat
[2019-12-13 17:59] VITALS: BP 136/79; PULSE 98
== END 2019-12-13 18:05 | disposition home or self-care (01) ==
LOC: MW.ED 17:28
DX: S46.212A Strain of muscle, fascia and tendon of other parts of biceps, left arm, initial encounter (principal); E78.00 Pure hypercholesterolemia, unspecified; F41.9 Anxiety disorder, unspecified; F32.9 Major depressive disorder, single episode, unspecified; E66.9 Obesity, unspecified; Z68.42 Body mass index [BMI] 45.0-49.9, adult; Z90.49 Acquired absence of other specified parts of digestive tract; Z79.899 Other long term (current) drug therapy; X50.1XXA Overexertion from prolonged static or awkward postures, initial encounter
CPT/HCPCS: 99283

== ENCOUNTER 2019-12-15 07:30 | Day surgery (SDC) | payer BC ==
[~2019-12-15 07:30] MED LIST: Lactated Ringers 1,000 ML IV SCH
[2019-12-15] MEDS ORDERED: Bupivacaine 0.5%/EPINEPHrine 1:200,000 10 ML SDV ONE (07:34)
[2019-12-15] MEDS ORDERED: fentaNYL 250 MCG/5 ML SDV ONE (08:07)
[2019-12-15] MEDS ORDERED: Midazolam 1 MG/ML 2 ML SDV ONE (08:07)
[2019-12-15] MEDS ORDERED: Propofol 200 MG/20 ML SDV ONE (08:07)
[2019-12-15] MEDS ORDERED: Lidocaine 2% 5 ML SDV ONE (08:10)
[2019-12-15] MEDS ORDERED: Rocuronium 100 MG/10 ML Syringe ONE (08:10)
--- NOTE | 2019-12-15 08:40 | PCM.PREANE ---
Preanesthetic Assessment - Anesthesia/Transfusion/Family Hx Anesthesia History: Prior Anesthesia Without Reaction Family History of Anesthesia Reaction: No Transfusion History: No Prior Transfusion(s) - Review of Systems General: No Symptoms Pulmonary: No Symptoms Cardiovascular: No Symptoms Gastrointestinal: No Symptoms Neurological: No Symptoms Other: Reports: None - Physical Assessment NPO Status Date: 12/14/19 Vital Signs: Last Vital Signs Temp 97.7 F 12/15/19 08:05 Pulse 92 12/15/19 08:05 Resp 16 12/15/19 08:05 BP 120/73 12/15/19 08:05 Pulse Ox 95 12/15/19 08:05 Height: 5 ft 8 in Weight: 147.418 kg ASA Class: 4 Mental Status: Alert & Oriented x3 Airway Class: Mallampati = 2 Dentition: Reports: Normal Dentition ROM/Head Extension: Full Lungs: Clear to Auscultation, Normal Respiratory Effort Cardiovascular: Regular Rate, Regular Rhythm - Allergies Allergies/Adverse Reactions: Allergies Allergy/AdvReac Type Severity Reaction Status Date / Time No Known Allergies Allergy Verified 12/15/19 08:03 - Blood Blood Available: No - Anesthesia Plan Pre-Op Medication Ordered: None - Acknowledgements Anesthesia Type Planned: General Anesthesia Pt an Appropriate Candidate for the Planned Anesthesia: Yes Alternatives and Risks of Anesthesia Discussed w Pt/Guardian: Yes Pt/Guardian Understands and Agrees with Anesthesia Plan: Yes Additional Comments: advised about EMELY, inst sheet given, asked to stop xanax for 7 days, pre-op SPO2 94-95% on RA PLAN: get PreAnesthesia Questionnaire - Past Health History Medical/Surgical History: Denies Medical/Surgical History HEENT History: Reports: Other (See Below) Other HEENT History: uses reading glasses Cardiovascular History: Reports: High Cholesterol Respiratory History: Reports: Sleep Apnea Other Respiratory History: uses CPAP nightly Gastrointestinal History: Reports: Other (See Below) Other Gastrointestinal History: occasional heartburn- no medications Genitourinary History: Reports: None Musculoskeletal History: Reports: Back Pain, Chronic Neurological History: Reports: Other (See Below) Other Neuro History: 1. seizure as a child, head injury with stitches as a child, currently has "bulging discs" in his back Psychiatric History: Reports: Anxiety, Depression Endocrine/Metabolic History: Reports: Obesity/BMI 30+ Hematologic History: Reports: None Immunologic History: Reports: None Oncologic (Cancer) History: Reports: None Dermatologic History: Reports: Psoriasis - Infectious Disease History Infectious Disease History: Reports: None - Past Surgical History Head Surgeries/Procedures: Reports: None HEENT Surgical History: Reports: Adenoidectomy, Naso-Sinus Surgery, Tonsillectomy, Other (See Below) Other HEENT Surgeries/Procedures: Uvulectomy and FESS Cardiovascular Surgical History: Reports: None Respiratory Surgical History: Reports: None GI Surgical History: Reports: None Endocrine Surgical History: Reports: None Neurological Surgical History: Reports: None Dermatological Surgical History: Reports: None - SUBSTANCE USE Smoking Status *Q: Current Some Day Smoker Tobacco Use Within Last Twelve Months: Cigarettes Recreational Drug Use History: No - HOME MEDS Home Medications: Home Meds ALPRAZolam [Xanax XR] 0 mg PO DAILY 12/13/19 [History] atorvaSTATin [Lipitor] 20 mg PO BEDTIME 12/13/19 [History] Cyclobenzaprine [Flexeril] 0 mg PO ASDIRECTED PRN 12/14/19 [History] Diclofenac Sodium 0 mg PO ASDIRECTED PRN 12/14/19 [History] oxyCODONE HCl/Acetaminophen [Percocet 5-325 mg Tablet] 1 each PO Q6HR #28 tablet 12/15/19 [Rx] - CURRENT (IN HOUSE) MEDS Current Meds: Current Medications Lactated Ringer's (Ringers, Lactated) 1,000 mls @ 125 mls/hr IV ASDIRECTED CARLITA Last Admin: 12/15/19 08:03 Dose: 125 mls/hr Cefazolin Sodium/Dextrose 3 gm (/ Premix) 75 mls @ 100 mls/hr IV ONETIME ONE Stop: 12/15/19 08:45 Discontinued Medications Bupivacaine HCl/Epinephrine Bitart (Marcaine 0.5%/Epinephrine 1:200,000) Confirm Administered Dose 10 ml .ROUTE .STK-MED ONE Stop: 12/15/19 07:35 Fentanyl (Sublimaze) Confirm Administered Dose 250 mcg .ROUTE .STK-MED ONE Stop: 12/15/19 08:08 Lidocaine (Xylocaine-Mpf 2%) Confirm Administered Dose 5 ml .ROUTE .STK-MED ONE Stop: 12/15/19 08:11 Midazolam HCl (Versed 1 Mg/Ml) Confirm Administered Dose 2 mg .ROUTE .STK-MED ONE Stop: 12/15/19 08:08 Propofol (Diprivan 20 Ml) Confirm Administered Dose 200 mg .ROUTE .STK-MED ONE Stop: 12/15/19 08:08 Rocuronium Walnut (Zemuron) Confirm Administered Dose 100 mg .ROUTE .STK-MED ONE Stop: 12/15/19 08:11
[2019-12-15] MEDS ORDERED: ceFAZolin/Dextrose,Iso-Osmotic 2 GM/50 ML Duplex Bag IV ONE (09:04)
[2019-12-15] MEDS ORDERED: Ondansetron 4 MG/2 ML SDV ONE (09:31)
[2019-12-15] MEDS ORDERED: Dexamethasone 4 MG/ML 5 ML MDV ONE (09:31)
--- NOTE | 2019-12-15 10:29 | PCM.OPNOTE ---
- General Post-Op/Procedure Note Date of Surgery/Procedure: 12/15/19 Operative Procedure(s): left distal biceps reconstruction Pre Op Diagnosis: left distal biceps tear Post-Op Diagnosis: Same Anesthesia Technique: General ET Tube Primary Surgeon: Vel Brar Nursing Administrator: Vale Gan EBL in mLs: 25 Complications: None Condition: Good
[2019-12-15] MEDS ORDERED: Naloxone 0.4 MG/ML Syringe IVPUSH PRN (10:54)
[2019-12-15] MEDS ORDERED: EPINEPHrine 1:10,000 1 MG/10 ML Syringe IVPUSH PRN (10:54)
[2019-12-15] MEDS ORDERED: Albuterol 0.083% 2.5 MG/3 ML Neb Soln NEB PRN (10:54)
[2019-12-15] MEDS ORDERED: 50% Dextrose in Water 50 ML Syringe IVPUSH PRN (10:54)
[2019-12-15] MEDS ORDERED: Atropine 0.1 MG/ML 10 ML Syringe IVPUSH PRN ×2 (10:54)
[2019-12-15] MEDS ORDERED: Ketorolac 30 MG/ML SDV IVPUSH ONE (11:21)
[2019-12-15] MEDS: fentaNYL 100 MCG/2 ML SDV IVPUSH PRN ×2 (11:45→11:58)
--- NOTE | 2019-12-15 12:33 | PCM.POSTAN ---
POST ANESTHESIA ASSESSMENT - MENTAL STATUS Mental Status: Alert, Oriented - VITAL SIGNS Vital Signs: Last Vital Signs Temp 37 C 12/15/19 11:14 Pulse 105 H 12/15/19 12:09 Resp 16 12/15/19 12:09 BP 143/87 H 12/15/19 12:09 Pulse Ox 95 12/15/19 12:09 - RESPIRATORY Respiratory Status: Respiratory Rate WNL, Airway Patent, O2 Saturation Stable - CARDIOVASCULAR CV Status: Pulse Rate WNL, Blood Pressure Stable - GASTROINTESTINAL GI Status: No Symptoms - POST OP HYDRATION Hydration Status: Adequate & Stable
[2019-12-15] MEDS ORDERED: Acetaminophen/oxyCODONE 325-5 MG Tab PO ONE (12:39)
--- NOTE | 2019-12-15 13:35 | OR ---
SURGEON: Vel Brar DATE OF PROCEDURE: 12/15/2019 PREOPERATIVE DIAGNOSIS: Left distal biceps tendon tear. POSTOPERATIVE DIAGNOSIS: Left distal biceps tendon tear. PROCEDURE: Left distal biceps reconstruction. PRIMARY SURGEON: Vel Brar DO LADIES UNDERWEAR OPERATOR: RICK Ramirez ROLE OF LADIES UNDERWEAR OPERATOR: Nurse practitioner, RICK Ramirez, played an essential role in assisting in this case, helping to position the patient, retract structures as needed, as well as suturing and cutting sutures as indicated. Her presence improved patient's safety and decreased operative time. FLUIDS: Lactated Ringer's solution. ESTIMATED BLOOD LOSS: 25 mL. COMPLICATION: None. SPECIMEN: None. DISCHARGE DISPOSITION: Stable to PACU. HISTORY AND INDICATIONS FOR THE PROCEDURE: The patient is well known to me. We previously did shoulder injections on him. He recently was moving a bed and injured his left arm. He was seen in the emergency department and subsequently had an MRI confirming the above-mentioned diagnosis. Risks and goals of the procedure were explained to the patient. Informed consent was obtained. DETAILS OF PROCEDURE: The patient was seen preoperatively by myself and the Anesthesia staff in the preoperative holding area where the operative site was marked. He was brought to the operative suite by the Anesthesia staff where general anesthesia was administered. All extremities were found to be well padded. A well-padded tourniquet was placed on the left proximal arm. The left upper extremity was then prepped and draped in a sterile manner. Time-out was called identifying the correct patient, the correct procedure, the correct side and antibiotics had been given within appropriate period of time. Tourniquet was not raised during the case. An S incision was made across the antecubital fossa and then proximally and distally. Bleeding was controlled with Bovie electrocautery. I avoided the cephalic vein. I used Metzenbaum and DeBakey to carefully dissect down to the radial tuberosity. I used C-arm to confirm that I was down to the radial tuberosity as well to avoid any posterior interosseous nerve injury proximally. I found the biceps tendon proximally completely torn off and retracted. I took a great deal of time to make sure that we did not damage any vessels or nerves, and then once I confirmed good placement of the anchor, I then drilled and placed a 2.3 Iconix anchor at the radial tuberosity and confirmed placement on C- arm. I then using 2 free needles did Krackow stitches and sutured the distal biceps. I then sutured those 2 sutures together at their most proximal portion of the biceps and then pulled those sutures through the anchor and tied them distally. I then tied the proximal and distal sutures to each other. We then irrigated with Betadine infused irrigation and my assistant director of public works closed subcutaneously with 2-0 Vicryl followed by 3-0 nylon. She also injected local anesthetic. The patient was then placed into a hinged elbow brace at 70 to 90 degrees of flexion. He was allowed to awaken from anesthesia and taken to the PACU in stable condition. [id number] / MODL /[id number]
--- NOTE | 2019-12-15 13:43 | PCM.SN.2 ---
- Free Text/Narrative Note: unable to keep sats above 90%, falls to 89% even when awake watching tv. will admit overnight.
[2019-12-15] MEDS ORDERED: Cyclobenzaprine 10 MG Tab PO PRN (13:46)
--- NOTE | 2019-12-15 15:51 | CR ---
Left elbow: Single fluoroscopic spot view was obtained the left elbow utilizing C-arm device. Comparison: Previous left elbow MRI of 12/14/19. Study shows orthopedic hardware in place for biceps tendon repair. Fluoroscopy time is given as 10.0 seconds. Impression: 1. Procedural study as noted above. Diagnostic code #2 This report was dictated in MDT
[2019-12-15] MEDS ORDERED: Alprazolam [Xanax Xr] 0.5 MG PO PRN (16:35)
[2019-12-15] MEDS: Ketorolac 15 MG/ML SDV IVPUSH PRN (18:02)
[2019-12-15] MEDS: Acetaminophen/oxyCODONE 325-5 MG Tab PO PRN (19:27)
[2019-12-15] MEDS ORDERED: atorvaSTATin 20 MG Tab PO SCH (21:00)
[2019-12-16] MEDS: Ketorolac 15 MG/ML SDV IVPUSH PRN (00:45)
[2019-12-16] MEDS: Acetaminophen/oxyCODONE 325-5 MG Tab PO PRN ×2 (03:15→09:19)
--- NOTE | 2019-12-16 07:19 | PCM.DCSUM1 ---
Discharge Summary - Hospital Course HPI Initial Comments: 44 yo male s/p left distal biceps repair kept for finn and low sats Diagnosis: Stroke: No - Discharge Data Discharge Date: 12/16/19 Discharge Disposition: Home, Self-Care 01 Condition: Good - Referral to Home Health Primary Care Physician: Radha Argueta NP - Discharge Diagnosis/Problem(s) (1) Biceps strain SNOMED Code(s): 918903471 ICD Code: S46.219A - STRAIN OF MUSC/FASC/TEND PRT BICEPS, UNSP ARM, INIT Status: Acute Current Visit: No Qualifiers: Encounter type: initial encounter Laterality: left Qualified Code(s): S46.212A - Strain of muscle, fascia and tendon of other parts of biceps, left arm, initial encounter - Patient Summary/Data Operative Procedure(s) Performed: left distal biceps reconstruction Complications: none - Patient Instructions Diet: Regular Diet as Tolerated Fluid Restriction: 2000 mL Activity: Apply Ice, Elevate Extremity Activity, Other: Every 2-3 hours for 20-30 minuted Driving: Do Not Drive Showering/Bathing: May Shower, No Tub Bathing/Swimming Showering/Bathing, Other: Place a plstic bag over dressing to keep dry.No bath until after follow-up Wound/Incision Care: Keep Operative Site/Wound Site Clean and Dry Notify Provider of: Fever, Increased Pain, Swelling and Redness, Drainage, Nausea and/or Vomiting Other/Special Instructions: Refer to "UPPER EXTREMITY DISCHARGE INSTRUCTIONS/ POSTOPERATIVE ORDERS" sheet - Discharge Plan *PRESCRIPTION DRUG MONITORING PROGRAM REVIEWED*: Yes *COPY OF PRESCRIPTION DRUG MONITORING REPORT IN PATIENT TRUE: No Prescriptions/Med Rec: oxyCODONE HCl/Acetaminophen [Percocet 5-325 mg Tablet] 1 each PO Q6HR #28 tablet Home Medications: Home Meds ALPRAZolam [Xanax XR] 0.5 mg PO DAILY PRN 12/13/19 [History] atorvaSTATin [Lipitor] 20 mg PO BEDTIME 12/13/19 [History] Cyclobenzaprine [Flexeril] 10 mg PO TID PRN 12/14/19 [History] Diclofenac Sodium 75 mg PO BID PRN 12/14/19 [History] Escitalopram Oxalate [Lexapro] 10 mg PO DAILY PRN 12/15/19 [History] Rosuvastatin Calcium [Crestor] 40 mg PO DAILY 12/15/19 [History] oxyCODONE HCl/Acetaminophen [Percocet 5-325 mg Tablet] 1 each PO Q6HR #28 tablet 12/15/19 [Rx] Patient Handouts: Acetaminophen; Oxycodone tablets Referrals: Vale Gan [employer] [Nurse Practitioner] - 12/30/19 1:40 pm - Discharge Summary/Plan Comment DC Time >30 min.: No - General Info Date of Service: 12/16/19 Admission Dx/Problem (Free Text: Left distal biceps tendon repair Functional Status: Reports: Pain Controlled, Tolerating Diet, Ambulating, Urinating - Review of Systems General: Reports: No Symptoms HEENT: Reports: No Symptoms Pulmonary: Reports: No Symptoms Cardiovascular: Reports: No Symptoms Gastrointestinal: Reports: No Symptoms Genitourinary: Reports: No Symptoms Musculoskeletal: Reports: Arm Pain, Joint Pain, Joint Swelling Skin: Reports: No Symptoms Neurological: Reports: Numbness, Tingling Psychiatric: Reports: No Symptoms - Patient Data Vitals - Most Recent: Last Vital Signs Temp 36.3 C 12/16/19 04:00 Pulse 78 12/16/19 04:00 Resp 17 12/16/19 04:00 BP 145/61 H 12/16/19 04:00 Pulse Ox 93 L 12/16/19 04:00 Weight - Most Recent: 147.418 kg I&O - Last 24 hours: Intake & Output 12/15/19 12/16/19 12/16/19 22:59 06:59 14:59 Intake Total 900 Output Total 850 Balance 50 Med Orders - Current: Current Medications Atorvastatin Calcium (Lipitor) 20 mg PO BEDTIME [facility] Last Admin: 12/15/19 21:08 Dose: 20 mg Cyclobenzaprine HCl (Flexeril) 10 mg PO TID PRN PRN Reason: backpain Oxycodone/Acetaminophen (Percocet 325-5 Mg) 1 tab PO Q6H PRN PRN Reason: Pain Last Admin: 12/16/19 03:15 Dose: 1 tab Alprazolam [Xanax Xr (] 0.5 Mg) 1 each PO DAILY PRN PRN Reason: Anxiety Discontinued Medications Albuterol (Proventil Neb Soln) 2.5 mg NEB ONETIME PRN PRN Reason: Wheezing Atropine Sulfate (Atropine 0.1 Mg/Ml) 0.5 mg IVPUSH ASDIRECTED PRN PRN Reason: Hypo-perfusion Atropine Sulfate (Atropine 0.1 Mg/Ml) 1 mg IVPUSH ASDIRECTED PRN PRN Reason: Hypo-Perfusion Bupivacaine HCl/Epinephrine Bitart (Marcaine 0.5%/Epinephrine 1:200,000) Confirm Administered Dose 10 ml .ROUTE .STK-MED ONE Stop: 12/15/19 07:35 Cefazolin Sodium/Dextrose (Ancef) Confirm Administered Dose 2 gm IV .STK-MED ONE Stop: 12/15/19 09:05 Dexamethasone (Dexamethasone) Confirm Administered Dose 20 mg .ROUTE .STK-MED ONE Stop: 12/15/19 09:32 Dextrose/Water (Dextrose 50% In Water) 50 ml IVPUSH ASDIRECTED PRN PRN Reason: Hypoglycemia Epinephrine HCl (Epinephrine 1:10,000) 1 mg IVPUSH ASDIRECTED PRN PRN Reason: ACLS Guidelines Fentanyl (Sublimaze) Confirm Administered Dose 250 mcg .ROUTE .STK-MED ONE Stop: 12/15/19 08:08 Fentanyl (Sublimaze) 50 mcg IVPUSH Q5M PRN PRN Reason: Pain Last Admin: 12/15/19 11:58 Dose: 50 mcg Lactated Ringer's (Ringers, Lactated) 1,000 mls @ 125 mls/hr IV ASDIRECTED CARLITA Last Admin: 12/15/19 08:03 Dose: 125 mls/hr Cefazolin Sodium/Dextrose 3 gm (/ Premix) 75 mls @ 100 mls/hr IV ONETIME ONE Stop: 12/15/19 08:45 Last Admin: 12/15/19 15:44 Dose: Not Given Cefazolin Sodium/Dextrose (Ancef) Confirm Administered Dose 50 mls @ as directed .ROUTE .STK-MED ONE Stop: 12/15/19 09:13 Ketorolac Tromethamine (Toradol) 30 mg IVPUSH ONETIME ONE Stop: 12/15/19 11:22 Last Admin: 12/15/19 11:42 Dose: 30 mg Ketorolac Tromethamine (Toradol) 15 mg IVPUSH Q6H PRN PRN Reason: Pain Stop: 12/16/19 05:00 Last Admin: 12/16/19 00:45 Dose: 15 mg Lidocaine (Xylocaine-Mpf 2%) Confirm Administered Dose 5 ml .ROUTE .STK-MED ONE Stop: 12/15/19 08:11 Midazolam HCl (Versed 1 Mg/Ml) Confirm Administered Dose 2 mg .ROUTE .STK-MED ONE Stop: 12/15/19 08:08 Naloxone HCl (Narcan) 0.1 mg IVPUSH ASDIRECTED PRN PRN Reason: Respiratory Depression Ondansetron HCl (Zofran) Confirm Administered Dose 4 mg .ROUTE .STK-MED ONE Stop: 12/15/19 09:32 Oxycodone/Acetaminophen (Percocet 325-5 Mg) 1 tab PO ONETIME ONE Stop: 12/15/19 12:40 Last Admin: 12/15/19 12:49 Dose: 1 tab Alprazolam [Xanax Xr (] 0.5 Mg) 1 each PO DAILY CARLITA Propofol (Diprivan 20 Ml) Confirm Administered Dose 200 mg .ROUTE .STK-MED ONE Stop: 12/15/19 08:08 Rocuronium [place] (Zemuron) Confirm Administered Dose 100 mg .ROUTE .STK-MED ONE Stop: 12/15/19 08:11 - Exam General: Reports: Alert, Oriented, Cooperative, No Acute Distress HEENT: Reports: Pupils Equal, Pupils Reactive, EOMI, Mucous Membr. Moist/[place] Neck: Reports: Supple, Trachea Midline Lungs: Reports: Normal Respiratory Effort Extremities: Joint Swelling, Arm Pain Skin: Reports: Warm, Dry, Intact Wound/Incisions: Reports: Healing Well, No Drainage Neurological: Reports: No New Focal Deficit Psy/Mental Status: Reports: Alert, Normal Affect, Normal Mood Discharge Operative/Procedures - Procedures Performed Operations: left distal biceps reconstruction
[2019-12-16 07:35] VITALS: BP 122/70; PULSE 83
--- NOTE | 2019-12-16 07:40 | PCM48HPAN ---
Post Anesthesia Note - EVALUATION WITHIN 48HRS OF ANESTHETIC Vital Signs in Normal Range: Yes (oxygen saturations maintained through the night with CPAP on) Patient Participated in Evaluation: Yes Respiratory Function Stable: Yes Airway Patent: Yes Cardiovascular Function Stable: Yes Hydration Status Stable: Yes Pain Control Satisfactory: Yes Nausea and Vomiting Control Satisfactory: Yes Mental Status Recovered: Yes Vital Signs: Last Vital Signs Temp 36.4 C 12/16/19 07:15 Pulse 83 12/16/19 07:15 Resp 18 12/16/19 07:15 BP 122/70 12/16/19 07:15 Pulse Ox 95 12/16/19 07:15 - COMMENTS/OBSERVATIONS Free Text/Narrative:: was on continuous pulse oximetry last night
[2019-12-16] MEDS ORDERED: Alprazolam [Xanax Xr] 0.5 MG PO SCH (09:00)
== END 2019-12-16 09:25 | disposition home or self-care (01) ==
LOC: MW.SDS 07:30 → MW.MS 15:12 → MW.SDS 12-16 09:25
PROVIDERS: ATTEND Orthopaedic Surgery
DX: S46.212A Strain of muscle, fascia and tendon of other parts of biceps, left arm, initial encounter (principal); I10 Essential (primary) hypertension; E78.5 Hyperlipidemia, unspecified; E78.00 Pure hypercholesterolemia, unspecified; E78.1 Pure hyperglyceridemia; K21.9 Gastro-esophageal reflux disease without esophagitis; F41.9 Anxiety disorder, unspecified; F32.9 Major depressive disorder, single episode, unspecified; Z79.899 Other long term (current) drug therapy; Z87.891 Personal history of nicotine dependence; E66.01 Morbid (severe) obesity due to excess calories; Z68.42 Body mass index [BMI] 45.0-49.9, adult; X50.9XXA Other and unspecified overexertion or strenuous movements or postures, initial encounter
CPT/HCPCS: 24341; 76000; A9270; C1713; J0690; J1100; J1885; J2001; J2250; J2405; J2704; J3010; J3490; J7120

== ENCOUNTER 2021-10-10 10:41 | Day surgery (SDC) | payer MEDICAID ==
[2021-10-10] MEDS ORDERED: propofoL 50 ML ONE (12:37)
[2021-10-10] MEDS ORDERED: fentaNYL 100 MCG/2 ML SDV ONE (12:38)
[2021-10-10] MEDS ORDERED: Lidocaine 1% 5 ML VIAL ONE (12:38)
[2021-10-10 16:20] VITALS: BP 144/60; PULSE 75
== END 2021-10-10 14:15 | disposition home or self-care (01) ==
LOC: MW.SDS 10:41
PROVIDERS: ATTEND Surgery
DX: K57.30 Diverticulosis of large intestine without perforation or abscess without bleeding (principal); K63.5 Polyp of colon; F41.9 Anxiety disorder, unspecified; F32.A Depression, unspecified; I10 Essential (primary) hypertension; E78.00 Pure hypercholesterolemia, unspecified; K21.9 Gastro-esophageal reflux disease without esophagitis; E66.01 Morbid (severe) obesity due to excess calories; G47.33 Obstructive sleep apnea (adult) (pediatric); Z79.899 Other long term (current) drug therapy; Z98.890 Other specified postprocedural states; Z87.891 Personal history of nicotine dependence; Z68.42 Body mass index [BMI] 45.0-49.9, adult
CPT/HCPCS: 45380; J2704; J3010; J7120; 00811

== ENCOUNTER 2022-10-08 18:45 | Emergency (ER) | payer BC, MEDICAID ==
[2022-10-08] MEDS ORDERED: Sodium Chloride 0.9% 2.5 ML Syringe FLUSH PRN (18:48)
[2022-10-08] MEDS ORDERED: Sodium Chloride 0.9% 10 ML Syringe FLUSH PRN (18:48)
[2022-10-08] MEDS ORDERED: Sodium Chloride 0.9% 1,000 ML IV ONE (19:37)
[2022-10-08 19:56] LABS: CARBON DIOXIDE,CO2 27.4 mmol/L (21.0-32.0); POTASSIUM,K 3.5 mmol/L (3.5-5.1)
[2022-10-08 20:00] LABS: CORONAVIRUS COVID-19 NAA NEGATIVE (NEGATIVE); INFLUENZA A NAA NEGATIVE (NEGATIVE); INFLUENZA B NAA NEGATIVE (NEGATIVE); RESPIRATORY SYNCYTIAL VIR NAA NEGATIVE (NEGATIVE)
[2022-10-08] MEDS ORDERED: LORazepam 2 MG/ML SDV IVPUSH ONE (20:18)
[2022-10-08 20:47] VITALS: BP 128/69; PULSE 84
== END 2022-10-08 20:45 | disposition home or self-care (01) ==
LOC: MW.ED 18:45
DX: R07.9 Chest pain, unspecified (principal); E78.5 Hyperlipidemia, unspecified; E78.00 Pure hypercholesterolemia, unspecified; K21.9 Gastro-esophageal reflux disease without esophagitis; E66.9 Obesity, unspecified; Z68.42 Body mass index [BMI] 45.0-49.9, adult; Z79.899 Other long term (current) drug therapy; Z20.822 Contact with and (suspected) exposure to COVID-19
CPT/HCPCS: 0241U; 36415; 71045; 80053; 81003; 84484; 85025; 93005; 96361; 96374; 99285; J2060; J3490; J7030

== ENCOUNTER 2024-06-05 13:29 | Emergency (ER) | payer SELFPAY ==
[2024-06-05] MEDS ORDERED: Sodium Chloride 0.9% 2.5 ML Syringe FLUSH PRN (14:02)
[2024-06-05] MEDS ORDERED: Sodium Chloride 0.9% 10 ML Syringe FLUSH PRN (14:02)
[2024-06-05 14:18] LABS: BASOPHILS ABSOLUTE AUTO 0.09 K/uL (0.00-0.20); BASOPHILS PERCENT AUTO 1.2 % (0.0-1.0); EOSINOPHILS ABSOLUTE AUTO 0.19 K/uL (0.00-0.45); EOSINOPHILS PERCENT AUTO 2.6 % (0.0-6.0); HEMATOCRIT 51.7 % (42.0-52.0); HEMOGLOBIN 16.4 g/dL (14.0-18.0); IMMATURE GRAN ABSOLUTE AUTO 0.06 K/uL (0.00-0.05); IMMATURE GRAN PERCENT AUTO 0.8 % (0.0-0.4); LYMPHOCYTES ABSOLUTE AUTO 2.64 K/uL (1.00-4.80); MEAN CORPUSCULAR HEMOGLOBIN 26.9 pg (28.0-32.0); MEAN CORPUSCULAR HGB CONC 31.7 g/dL (32.0-36.0); MEAN CORPUSCULAR VOLUME 84.8 fL (83.0-99.0); MEAN PLATELET VOLUME 9.4 fL (9.4-12.4); MONOCYTES ABSOLUTE AUTO 0.81 K/uL (0.00-0.80); MONOCYTES PERCENT AUTO 11.1 % (0.0-8.0); NEUTROPHILS ABSOLUTE AUTO 3.54 K/uL (1.80-7.70); NEUTROPHILS PERCENT AUTO 48.3 % (41.0-71.0); PLATELET COUNT,PLT 275 K/uL (150-400); WHITE BLOOD CELL COUNT,WBC 7.33 K/uL (3.9-11.3)
[2024-06-05 14:48] LABS: A/G RATIO 1.1 (0.9-1.6); ALBUMIN 3.6 g/dL (3.4-5.0); BILIRUBIN TOTAL 0.3 mg/dL (0.2-1.0); CALCIUM 8.9 mg/dL (8.5-10.1); CARBON DIOXIDE,CO2 27.5 mmol/L (21.0-32.0); CREATININE 0.9 mg/dL (0.8-1.3); EST CRCL DRUG DOSING (CG) 98.17 mL/min; PROTEIN TOTAL,TP 6.8 g/dL (6.4-8.2); TSH ULTRASENSITIVE 2.86 uIU/mL (0.36-3.74)
[2024-06-05 18:00] VITALS: BP 149/83; PULSE 77
== END 2024-06-05 18:02 | disposition home or self-care (01) ==
LOC: MW.ED 13:29
DX: R42 Dizziness and giddiness (principal); F41.9 Anxiety disorder, unspecified; R07.89 Other chest pain; E78.00 Pure hypercholesterolemia, unspecified; K21.9 Gastro-esophageal reflux disease without esophagitis; E66.9 Obesity, unspecified; F17.210 Nicotine dependence, cigarettes, uncomplicated; Z79.899 Other long term (current) drug therapy; Z75.8 Other problems related to medical facilities and other health care; Z68.41 Body mass index [BMI] 40.0-44.9, adult
CPT/HCPCS: 36415; 71045; 71045-26; 80053; 83690; 84443; 84484; 85025; 93005; 99285

== ENCOUNTER 2024-12-15 09:35 | Emergency (ER) | payer BC ==
[2024-12-15] MEDS ORDERED: Sodium Chloride 0.9% 20 ML SDV IV PRN (09:59)
[2024-12-15] MEDS ORDERED: Sodium Chloride 0.9% 2.5 ML Syringe FLUSH PRN (09:59)
[2024-12-15] MEDS ORDERED: Sodium Chloride 0.9% 10 ML Syringe FLUSH PRN (09:59)
[2024-12-15] MEDS: Aspirin 81 MG Tab.Chew PO ONE (10:05)
[2024-12-15 10:27] LABS: BASOPHILS ABSOLUTE AUTO 0.04 K/uL (0.00-0.20); BASOPHILS PERCENT AUTO 0.8 % (0.0-1.0); EOSINOPHILS ABSOLUTE AUTO 0.15 K/uL (0.00-0.45); HEMATOCRIT 52.1 % (42.0-52.0); HEMOGLOBIN 17.5 g/dL (14.0-18.0); IMMATURE GRAN ABSOLUTE AUTO 0.03 K/uL (0.00-0.05); IMMATURE GRAN PERCENT AUTO 0.6 % (0.0-0.4); LYMPHOCYTES ABSOLUTE AUTO 2.12 K/uL (1.00-4.80); LYMPHOCYTES PERCENT AUTO 41.9 % (24.0-44.0); MEAN CORPUSCULAR HEMOGLOBIN 27.3 pg (28.0-32.0); MEAN CORPUSCULAR HGB CONC 33.6 g/dL (32.0-36.0); MEAN CORPUSCULAR VOLUME 81.2 fL (83.0-99.0); MEAN PLATELET VOLUME 9.7 fL (9.4-12.4); MONOCYTES ABSOLUTE AUTO 0.45 K/uL (0.00-0.80); MONOCYTES PERCENT AUTO 8.9 % (0.0-8.0); NEUTROPHILS ABSOLUTE AUTO 2.27 K/uL (1.80-7.70); NEUTROPHILS PERCENT AUTO 44.8 % (41.0-71.0); PLATELET COUNT,PLT 191 K/uL (150-400); RED BLOOD CELL COUNT 6.42 M/uL (4.52-5.90); WHITE BLOOD CELL COUNT,WBC 5.06 K/uL (3.9-11.3)
[2024-12-15 10:39] LABS: PTT,PARTIAL THROMBOPLSTIN TIME 28.9 SEC (23.9-30.7)
[2024-12-15 10:57] LABS: A/G RATIO 1.3 (0.9-1.6); ALBUMIN 4.2 g/dL (3.4-5.0); BILIRUBIN TOTAL 0.7 mg/dL (0.2-1.0); CALCIUM 9.8 mg/dL (8.5-10.1); CREATININE 0.9 mg/dL (0.8-1.3); EST CRCL DRUG DOSING (CG) 97.11 mL/min; POTASSIUM,K 4.6 mmol/L (3.5-5.1); PROTEIN TOTAL,TP 7.4 g/dL (6.4-8.2)
[2024-12-15] MEDS: Alum Hydrox/Mag Hydrox/Simeth 15 ML, Lidocaine 2% 5 ML PO ONE (12:41)
[2024-12-15 18:25] VITALS: BP 134/84; PULSE 89
== END 2024-12-15 16:32 | disposition home or self-care (01) ==
LOC: MW.ED 09:35
DX: R07.89 Other chest pain (principal); K21.9 Gastro-esophageal reflux disease without esophagitis; E78.00 Pure hypercholesterolemia, unspecified; E66.9 Obesity, unspecified; Z79.899 Other long term (current) drug therapy
CPT/HCPCS: 36415; 71045; 80053; 83690; 83735; 83880; 84484; 85025; 85379; 85610; 85730; 93005; 99285; A9270; 93010; 99283